=== PATIENT | female | born 1955 | race Caucasian/White ===

== ENCOUNTER 2016-12-08 10:08 | Day surgery (SDC) | payer OTHER ==
[~2016-12-08] VITALS: Ht 162.6 cm; Wt 72.2 kg
[~2016-12-08 10:08] MED LIST: FLUC200T52 PO; LISI40TA9 PO; acyclovir PO
[2016-12-08 11:08] VITALS: Ht 162.6 cm; Wt 72.2 kg
[2016-12-08] MEDS ORDERED: ATEN-51 PO (11:18)
[2016-12-08] MEDS ORDERED: BUPR-34 PO (11:18)
[2016-12-08 11:48] VITALS: BP 112/70; PULSE 57; RESP 20
[2016-12-08 12:42] VITALS: BP 109/79; PULSE 60; RESP 16
[2016-12-08] MEDS ORDERED: FENTAnyl 50 MCG/ML VIAL ONE (18:02)
[2016-12-08] MEDS ORDERED: MIDAZOLAM 1 MG/ML 2 ML INJ ONE ×3 (18:02)
--- NOTE | 2016-12-15 07:24 | GILP ---
DATE OF PROCEDURE: 12/08/2016 PROCEDURE PERFORMED: Colonoscopy and biopsy. SURGEON: Luke Weston MD. PREOP DIAGNOSIS: Screening colonoscopy. POSTOP DIAGNOSES: 1. Colonoscopy all the way to the cecum. 2. Small transverse colon polyp was removed using the biopsy forceps. 3. Internal hemorrhoids. INDICATION: Ms. Beronica Claros is a 61-year-old female patient who was scheduled for screening colonoscopy. The procedure and possible complications were well explained to the patient. The patient understood and consented to the procedure. DESCRIPTION OF PROCEDURE: Under influence of fentanyl and Versed, the colonoscope was carefully introduced in the rectum. Under direct vision, it was advanced all the way to the cecum. Findings: The patient had a small transverse colon polyp, and it was removed using the biopsy forceps. She had internal hemorrhoids. She tolerated the procedure very well. There were no complication from the procedure. At the end of procedure, she was awake with stable vital signs. She was discharged in the care of her family. IMPRESSION: 1. Colonoscopy all the way to the cecum. 2. Small transverse colon polyp was removed using the biopsy forceps. 3. Internal hemorrhoids. PLAN: Next screening colonoscopy in 10 years. Dictated By: MD EROS Carson/[email or web address] /Document#: [id number]
== END 2016-12-08 17:48 | disposition home or self-care (01) ==
LOC: GIL 10:08
PROVIDERS: ATTEND Internal Medicine Gastroenterology
DX: Z12.11 Encounter for screening for malignant neoplasm of colon (principal); D12.3 Benign neoplasm of transverse colon; K64.8 Other hemorrhoids; I10 Essential (primary) hypertension
CPT/HCPCS: 45380; 88305; J2250; J3010; Z7610